=== PATIENT | female | born 1945 | race Caucasian/White ===

== ENCOUNTER → 2018-04-08 | Day surgery (SDC) | payer MEDICARE ==
[2018-04-03 16:08] VITALS: BMI 24.1
[~2018-04-08] MED LIST: PROPOFOL 10 MG/ML 20 ML VIAL IV ONE; SODIUM CHLORIDE 0.9% 1,000 ML IV SCH
[2018-04-08 07:06] VITALS: TEMP 97.7
--- NOTE | 2018-04-08 08:09 | P.PCN ---
Date of Procedure: 04/08/18 Preoperative Diagnosis: Atrial fibrillation, cardiomyopathy Postoperative Diagnosis: The same Procedure(s) Performed: Cardioversion Description of Procedure: This is 72-year-old female was recently admitted with atrial fibrillation and rapid ventricular response. Patient was anticoagulated and rate controlled and advised to have cardioversion. Patient and family were explained the risks and benefits of the procedure. Patient was brought to the lab in a fasting state. She was prepped and draped in the usual fashion. Patient was given IV anesthesia by department of anesthesia using propofol. Synchronized shocks of 200 followed with 300 J was applied with anterior-posterior paddles. Patient converted to sinus rhythm and sinus bradycardia with frequent APCs. No immediate complications. Plan: Patient will be monitored for the next 3-4 hours. If clinically stable, patient will be discharged home. Patient will continue home medications. Follow-up in the office in one week.
[2018-04-08 08:32] VITALS: RESP 18
[2018-04-08 10:02] VITALS: BP 119/67; PULSE 55
== END | disposition home or self-care (01) ==
LOC: CATHCVL 06:03
PROVIDERS: ATTEND Internal Medicine Cardiovascular Disease
DX: I48.1 Persistent atrial fibrillation (principal); I42.9 Cardiomyopathy, unspecified; I10 Essential (primary) hypertension; E78.5 Hyperlipidemia, unspecified; E07.9 Disorder of thyroid, unspecified; I25.10 Atherosclerotic heart disease of native coronary artery without angina pectoris; E78.00 Pure hypercholesterolemia, unspecified; Z82.49 Family history of ischemic heart disease and other diseases of the circulatory system; Z79.899 Other long term (current) drug therapy; Z79.890 Hormone replacement therapy; Z79.82 Long term (current) use of aspirin; Z85.3 Personal history of malignant neoplasm of breast
CPT/HCPCS: 92960; J2704

== ENCOUNTER 2018-05-06 09:00 | Day surgery (SDC) | payer MEDICARE ==
[2018-05-02 09:13] VITALS: BMI 24.3
[2018-05-06 08:39] VITALS: RESP 16; TEMP 98
[~2018-05-06 09:00] MED LIST changes: +ALPRAZolam 0.25 MG TAB PO PRN; +ALPRAZolam 0.5 MG TAB PO PRN; +ASPIRIN 325 MG TAB PO STA; +ASPIRIN 81 MG ONE; +ATORVASTATIN 80 MG TAB PO STA; -LIDOCAINE 1% INJ 10MG/ML (20 ML MDV) ONE; +NITROGLYCERIN SL TABS 0.4 MG TAB SUBLINGUAL PRN; +SODIUM CHLORIDE 0.9% 1,000 ML in EMPTY BAG 1 BAG IV ONE; -fentaNYL (PF) 50 MCG/ML 2 ML AMP ONE
[2018-05-06] MEDS ORDERED: fentaNYL (PF) 50 MCG/ML 2 ML AMP IV ONE (09:09)
[2018-05-06] MEDS ORDERED: MIDAZOLAM 2 MG/2 ML VIAL IVP ONE (09:09)
[2018-05-06] MEDS ORDERED: LIDOCAINE 1% INJ 10MG/ML (20 ML MDV) SQ ONE (09:13)
[2018-05-06] MEDS ORDERED: IOPAMIDOL-370 50ML BTL INJ ONE (09:27)
[2018-05-06] MEDS ORDERED: RX INFO: IV CONTRAST WAS GIVEN 1 EACH MISC MISCELLANE PRN (09:36)
[2018-05-06] MEDS ORDERED: IOPAMIDOL-370 125ML BTL INJ ONE (09:41)
[2018-05-06] MEDS ORDERED: SODIUM CHLORIDE 0.9% 1,000 ML IV SCH (09:45)
[2018-05-06 15:00] VITALS: BP 136/76; PULSE 65
--- NOTE | 2018-05-21 12:14 | P.CARDCATH ---
Date of Procedure: 05/06/18 Preoperative Diagnosis: Positive stress test, cardiomyopathy, atrial fibrillation Postoperative Diagnosis: Minimal coronary artery disease Description of Procedure: HISTORY: This is a 72-year-old female with history of hypertension, was recently admitted to the hospital with atrial fibrillation and evidence of mild cardiomyopathy. Stress test was suggestive of ischemic changes involving the inferolateral segments. Patient is advised to have a cardiac catheterization for definitive diagnosis. CONSENT:I have discussed the risks, benefits and alternative therapies for the above-mentioned procedure and for both sedation/analgesia as well as necessary blood product administration, if indicated, as they pertain to this patient. The patient has indicated understanding and acceptance of the risks and procedures discussed. PROCEDURE: Patient was brought to the lab in a fasting state. Patient was given some IV sedation. The right groin is infiltrated with lidocaine and right femoral artery was entered using Seldinger technique. A 6-Ugandan catheter was left in place and selective coronary arteriography and left ventriculography was performed. Patient tolerated the procedure well. Femoral angiogram was performed and Angio-Seal was applied for hemostasis. No immediate complications were noted and patient was transferred to [facility] in a stable condition Conscious Sedation: Versed 1 mg Fentanyl 25 g Duration 16 minutes HEMODYNAMICS:. The aortic pressure is about 140/70. Left ventricular end- diastolic pressure is about 15. No gradient across the aortic valve SELECTIVE CORONARY ARTERIOGRAPHY: LEFT MAIN: Short and free of occlusive disease THE LEFT ANTERIOR DESCENDING CORONARY ARTERY:. This is a good caliber vessel giving rise good-sized diagonal branch. The LAD and its branches are free of occlusive disease THE LEFT CIRCUMFLEX AND IS CORONARY ARTERY:. This is a good caliber vessel giving rise to good-sized OM branch. There is minimal disease in the proximal portion THE RIGHT CORONARY ARTERY:. This is a good caliber vessel giving rise to good-sized PDA and PLV and dominant vessel. There is mild disease in the mid and distal portion LEFT VENTRICULOGRAPHY:. This revealed mildly dilated left ventricle with generalized hypokinesia with an ejection fraction about 40% FINAL IMPRESSION:. Minimal coronary artery disease. Nonischemic cardiomyopathy PLAN: Maximum medical therapy. PROGNOSIS: fair
== END 2018-05-06 14:40 | disposition home or self-care (01) ==
LOC: CATHEP 09:00 → EDSTATUS 09:00 → CATHEP 14:40
PROVIDERS: ATTEND Internal Medicine Cardiovascular Disease
DX: I25.10 Atherosclerotic heart disease of native coronary artery without angina pectoris (principal); R94.39 Abnormal result of other cardiovascular function study; I42.0 Dilated cardiomyopathy; I48.1 Persistent atrial fibrillation; E78.00 Pure hypercholesterolemia, unspecified; I10 Essential (primary) hypertension; E78.5 Hyperlipidemia, unspecified; Z79.01 Long term (current) use of anticoagulants; Z79.82 Long term (current) use of aspirin; Z79.890 Hormone replacement therapy; Z79.899 Other long term (current) drug therapy; Z82.49 Family history of ischemic heart disease and other diseases of the circulatory system
CPT/HCPCS: 93458; C1760; C1894; C1769; J2250; J2001; J3010; Q9967 ×2

== ENCOUNTER → 2018-05-06 | Day surgery (SDC) ==
[~2018-05-06] MED LIST changes: +LIDOCAINE 1% INJ 10MG/ML (20 ML MDV) ONE; -PROPOFOL 10 MG/ML 20 ML VIAL IV ONE; -SODIUM CHLORIDE 0.9% 1,000 ML IV SCH; +fentaNYL (PF) 50 MCG/ML 2 ML AMP ONE
== END ==
LOC: EDBD → MERGE 07:56 → CATHCVL 07:56
PROVIDERS: ATTEND Internal Medicine Cardiovascular Disease
DX: Z53.9 Procedure and treatment not carried out, unspecified reason (principal)

== ENCOUNTER 2018-06-03 06:51 | Day surgery (SDC) | payer MEDICARE ==
[2018-05-29 11:43] VITALS: BMI 23.8
[~2018-06-03 06:51] MED LIST changes: -ALPRAZolam 0.25 MG TAB PO PRN; -ALPRAZolam 0.5 MG TAB PO PRN; -ASPIRIN 325 MG TAB PO STA; -ASPIRIN 81 MG ONE; -ATORVASTATIN 80 MG TAB PO STA; -NITROGLYCERIN SL TABS 0.4 MG TAB SUBLINGUAL PRN; +SODIUM CHLORIDE 0.9% 1,000 ML IV SCH; -SODIUM CHLORIDE 0.9% 1,000 ML in EMPTY BAG 1 BAG IV ONE
[2018-06-03] MEDS ORDERED: SODIUM CHLORIDE 0.9% 500 ML 500 ML IV ONE (07:23)
[2018-06-03 07:29] VITALS: RESP 16; TEMP 97.6
[2018-06-03 07:52] LABS: Calcium 9.9 mg/dL (8.4-10.2)
[2018-06-03] MEDS ORDERED: LIDOCAINE 1% INJ 10MG/ML (20 ML MDV) ONE (08:19)
[2018-06-03] MEDS ORDERED: PROPOFOL 10 MG/ML 20 ML VIAL IV ONE (08:19)
[2018-06-03 08:21] LABS: Potassium 4.8 mmol/L (3.5-5.1)
[2018-06-03] MEDS ORDERED: SODIUM CHLORIDE 0.9% 1,000 ML IV SCH (08:30)
--- NOTE | 2018-06-03 08:32 | P.PCN ---
Date of Procedure: 06/03/18 Preoperative Diagnosis: Atrial fibrillation Postoperative Diagnosis: Conversion to sinus rhythm Procedure(s) Performed: Cardioversion Description of Procedure: This 72-year-old female with history of cardioversion, cardiomyopathy, had a cardioversion in the past but did not maintain sinus rhythm. She was treated with amiodarone and brought back for repeat cardioversion. Patient was given IV sedation by department of anesthesia. A single shock of 200 J was applied with anterior posterior paddles. Patient converted to sinus rhythm. No immediate complications. Final impression: Successful cardioversion. No complications. Plan: Patient will be discharged home later today. She'll continue current medical therapy except cutting back amiodarone to 200 mg by mouth twice a day. I may cut back the dose to once daily in a week or so.
[2018-06-03 10:23] VITALS: BP 134/79; PULSE 58
== END 2018-06-03 10:23 | disposition home or self-care (01) ==
LOC: CATHCVL 06:51
PROVIDERS: ATTEND Internal Medicine Cardiovascular Disease
DX: I48.1 Persistent atrial fibrillation (principal); I42.0 Dilated cardiomyopathy; I25.10 Atherosclerotic heart disease of native coronary artery without angina pectoris; I10 Essential (primary) hypertension; E78.00 Pure hypercholesterolemia, unspecified; Z82.49 Family history of ischemic heart disease and other diseases of the circulatory system; Z79.01 Long term (current) use of anticoagulants; Z79.82 Long term (current) use of aspirin; Z79.890 Hormone replacement therapy; Z79.899 Other long term (current) drug therapy
CPT/HCPCS: 92960; 80048; J2001; J2704

== ENCOUNTER → 2018-08-28 | Outpatient (CLI) | payer MEDICARE ==
[2018-08-28 10:58] LABS: Potassium 4.5 mmol/L (3.5-5.1)
[2018-08-28 10:59] LABS: HCT 43.4 % (34.0-46.0); MCH 30.4 pg (25.0-35.0); MCHC 32.3 g/dL (31.0-37.0); MCV 94.1 fL (80.0-100.0); Mean Platelet Volume 6.9; Platelet Count 231 k/uL (150-450); RBC 4.61 m/uL (3.80-5.40); RDW 13.1 % (11.5-15.5)
== END | disposition home or self-care (01) ==
LOC: LABPAT 09:26
PROVIDERS: ATTEND Internal Medicine Clinical Cardiac Electrophysiology
DX: Z01.812 Encounter for preprocedural laboratory examination (principal); I48.1 Persistent atrial fibrillation; I42.0 Dilated cardiomyopathy
CPT/HCPCS: 36415; 80051; 82565; 82947; 84520; 85027

== ENCOUNTER 2018-09-02 11:03 | Day surgery (SDC) | payer MEDICARE ==
[2018-08-28 15:59] VITALS: BMI 24.3
[2018-09-02] MEDS ORDERED: HYDROmorphone 0.5 MG/0.5 ML SYRINGE IVP PRN (11:54)
[2018-09-02] MEDS ORDERED: MIDAZOLAM (PF) 2 MG/2 ML VIAL IV PRN (11:54)
[2018-09-02] MEDS ORDERED: SODIUM CHLORIDE 0.9% 1,000 ML IV SCH (11:54)
[2018-09-02] MEDS ORDERED: LACTATED RINGERS 1,000 ML IV SCH (11:54)
[2018-09-02] MEDS ORDERED: PROPOFOL 10 MG/ML 20 ML VIAL IV ONE (12:55)
[2018-09-02] MEDS ORDERED: MIDAZOLAM 2 MG/2 ML VIAL ONE (12:55)
[2018-09-02] MEDS ORDERED: ePHEDrine SULFATE/0.9% NACL/PF 50 MG/5 ML SYRINGE IV ONE (12:55)
[2018-09-02] MEDS ORDERED: SUCCINYLCHOLINE CHLORIDE 100 MG/5 ML SYR IV ONE (12:55)
[2018-09-02] MEDS ORDERED: PROTAMINE SULFATE 10 MG/ML 5 ML VIAL IV ONE (12:55)
[2018-09-02] MEDS ORDERED: NEOSTIGMINE 1 MG/ML 10 ML VIAL ONE (12:55)
[2018-09-02] MEDS ORDERED: GLYCOPYRROLATE 0.2 MG/ML 2 ML VIAL ONE (12:55)
[2018-09-02] MEDS ORDERED: fentaNYL (PF) 50 MCG/ML 2 ML AMP ONE (12:55)
[2018-09-02] MEDS ORDERED: ROCURONIUM BROMIDE 10 MG/ML 10 ML VIAL IV ONE (12:55)
[2018-09-02] MEDS ORDERED: PHENYLEPHRINE-0.9% NACL SYG 1 MG/10 ML SYRINGE ONE (12:55)
[2018-09-02] MEDS ORDERED: HEPARIN SODIUM,PORCINE 10,000 UNIT/ML 1 ML VIAL ONE (12:55)
[2018-09-02] MEDS ORDERED: SODIUM CHLORIDE 0.9% 1,000 ML IV ONE (13:37)
[2018-09-02] MEDS ORDERED: HEPARIN SOD,PORK IN 0.45% NACL 25,000 UNIT in 0.45% NACL 1 250ML.BAG IV ONE (14:39)
[2018-09-02] MEDS ORDERED: LIDOCAINE 1% INJ 10MG/ML (20 ML MDV) SQ ONE (14:39)
[2018-09-02] MEDS ORDERED: LIDOCAINE 1% INJ 10MG/ML (20 ML MDV) ONE (14:43)
[2018-09-02] MEDS ORDERED: IOPAMIDOL-370 100ML BTL INJ ONE (16:34)
[2018-09-02] MEDS ORDERED: HYDROcodone/APAP 5-325MG 1 EACH TAB PO PRN (18:00)
[2018-09-02] MEDS ORDERED: ACETAMINOPHEN TAB 325 MG TAB PO PRN (18:00)
[2018-09-02] MEDS ORDERED: HEPARIN SODIUM (1,000 UNIT/ML) 1,000 UNIT in SODIUM CHLORIDE 0.9% 1,000 ML IRRIGATION ONE (18:04)
[2018-09-02] MEDS ORDERED: LACTATED RINGERS 1,000 ML IV ONE (18:05)
[2018-09-02] MEDS ORDERED: ACETAMINOPHEN IV (For NPO) 1,000 MG in EMPTY BAG 1 BAG IVPB ONE (19:15)
[2018-09-02] MEDS ORDERED: ONDANSETRON 4 MG/2 ML VIAL IVP ONE (19:29)
[2018-09-02] MEDS: LISINOPRIL 5 MG TAB PO SCH (22:49)
[2018-09-02] MEDS: COLCHICINE 0.6 MG EACH PO SCH (22:49)
[2018-09-02] MEDS: APIXABAN 5 MG TAB PO SCH (22:49)
[2018-09-02] MEDS: FLECAINIDE 50 MG TAB PO SCH (22:49)
[2018-09-02] MEDS: METOPROLOL TARTRATE 25 MG TAB PO SCH (22:49)
[2018-09-03] MEDS ORDERED: LEVOTHYROXINE 50 MCG TAB PO SCH (06:30)
[2018-09-03] MEDS ORDERED: FUROSEMIDE 40 MG TAB PO STA (07:20)
--- NOTE | 2018-09-03 07:20 | P.DS ---
Providers Attending physician: Cristian Culp Primary care physician: [facility] Course: Patient is doing well. No chest discomfort. Mild soreness in the throat with swallowing but no odynophagia or chest pain while swallowing Fever chills no cough phlegm Vitals are stable blood pressure 109/68 mmHg pulse rate in the 60s afebrile Breath sounds are reduced bilaterally slightly rhonchorous Heart sounds S1 and S2 are normal regular soft systolic murmur over the aortic area Abdomen soft nontender Extremities are warm no edema Impression Persistent atrial fibrillation status post pulmonary vein isolation, cryoablation as well as linear RF ablation in the left atrial roof and septum of the left atrium Mild organization of atrial fibrillation but the patient remained in atrial fibrillation Electrical cardioversion was performed Scar mapping/voltage mapping of the left atrium revealed extensive scar in the left atrium at baseline LV function 50% good myocardial thickening noted on intracardiac echo Plan discharge home today on current medications without any changes continue antegradely should continue flecainide follow-up with Dr. Vela 1 dose of by mouth Lasix today Plan - Discharge Summary Discharge Rx Participant: Yes New Discharge Prescriptions: Continue Simvastatin [Zocor] 40 mg PO DAILY Levothyroxine Sodium [Synthroid] 50 mcg PO DAILY Aspirin [Adult Low Dose Aspirin EC] 81 mg PO DAILY Lisinopril [Zestril] 5 mg PO BID Apixaban [Eliquis] 5 mg PO BID Metoprolol Tartrate [Lopressor] 25 mg PO BID Flecainide [Tambocor] 50 mg PO Q12HR Discharge Medication List Aspirin [Adult Low Dose Aspirin EC] 81 mg PO DAILY 04/03/18 [History] Levothyroxine Sodium [Synthroid] 50 mcg PO DAILY 04/03/18 [History] Simvastatin [Zocor] 40 mg PO DAILY 04/03/18 [History] Lisinopril [Zestril] 5 mg PO BID 05/02/18 [History] Apixaban [Eliquis] 5 mg PO BID 05/29/18 [History] Flecainide [Tambocor] 50 mg PO Q12HR 08/28/18 [History] Metoprolol Tartrate [Lopressor] 25 mg PO BID 08/28/18 [History] Follow up Appointment(s)/Referral(s): Cristian Culp MD [STAFF PHYSICIAN] - 1 Week (Follow-up with Dr. Malave within one week Follow-up with Dr. Amezcua as needed) Activity/Diet/Wound Care/Special Instructions: Post EP study - Ablation instructions 1. Keep access sites dry for 2 days. 2. No heavy lifting or straining for 2 days. 3. Avoid bending the hips repeatedly for 2 days. 4. You may go up and down stairs slowly Call if the following is noted 1. Bleeding, increasing swelling or pain at the access sites. 2. Increasing chest discomfort, especially upon taking a deep breath. 3. Increasing shortness of breath, at rest or with exertion. 4. Undue cough / phlegm 5. Difficulty or pain while swallowing. 6. Pain or change in color in the extremities. 7. Fever, chills, rigors. 8. Increasing headache or neurologic symptoms. 9. Dizziness, fainting, palpitations Continue same home medications including flecainide 50 mg twice daily Follow-up with : Probably within one week No changes in home medications Discharge home by 5 PM if patient is here today stable, sutures were then removed and vitals are stable
[2018-09-03 07:53] VITALS: RESP 18
[2018-09-03] MEDS: FLECAINIDE 50 MG TAB PO SCH (07:54)
[2018-09-03] MEDS: APIXABAN 5 MG TAB PO SCH (07:54)
[2018-09-03] MEDS: METOPROLOL TARTRATE 25 MG TAB PO SCH (07:54)
[2018-09-03] MEDS: LISINOPRIL 5 MG TAB PO SCH (07:54)
[2018-09-03] MEDS: COLCHICINE 0.6 MG EACH PO SCH (07:55)
[2018-09-03] MEDS ORDERED: ATORVASTATIN 20 MG TAB PO SCH (09:00)
[2018-09-03] MEDS ORDERED: ASPIRIN 81 MG PO SCH (09:00)
[2018-09-03 15:45] VITALS: BP 105/68; PULSE 69; TEMP 98.2
--- NOTE | 2018-09-08 16:41 | PCN ---
PROCEDURE NOTE Cara Amaro has symptomatic atrial fibrillation that is rate controlled. She has failed drug therapy and electrical cardioversions. She has cardiomyopathy despite atrial fibrillation with adequate rate control. She is brought in for an EP study and atrial fibrillation ablation. Patient was brought to the EP lab in a fasting state. Written informed consent was obtained prior to the procedure. The patient underwent general anesthesia for the procedure. The right and left groins were prepped and draped as per protocol. Venous sheaths were placed in the right and left femoral veins. Via these diagnostic and ablation catheters were placed in the high right atrium, His bundle area, right ventricle, coronary sinus. Intracardiac echo catheter and mapping ablation catheter were placed as well as a PentaRay catheter was placed. The intracardiac echo revealed reduced LV systolic function, no pericardial effusion, and absence of any intracardiac mass or thrombus. The left and right transseptal catheterization was performed. The fossa ovalis was identified. Transseptal catheterization was performed. Right atrial pressure 8/4/6 mmHg and LA pressure 25/3/30 mmHg systolic and diastolic . Following that, a cryoablation of pulmonary veins was performed and a cryoablation balloon was placed in all veins sequentially cryoablation of the left superior vein was performed with complete isolation, the left inferior vein was performed with complete isolation, the right-sided veins were completely isolated with entrance block. However, despite complete isolation of the pulmonary veins at the lateral antral level with cryoablation, the patient remained in the disorganized atrial fibrillation. Therefore the cryo sheath was removed and it was exchanged for a regular sheath and irrigated RF mapping ablation catheter was placed in the left atrium. Later a PentaRay catheter was placed. Scar mapping/voltage mapping of the left atrium was performed. The veins were completely isolated. However, there was a considerable amount of scar in the body of the left atrium. RF ablation was performed in the roof and the roof line was made and a complete line of block was made with 100% grid. However, the patient remained in disorganized atrial fibrillation. Next a septal line was placed from the roof down to the down to the right inferior vein anteriorly. This resulted in some organization but the patient still remains in atrial fibrillation. Therefore, at this point, an electrical cardioversion was performed and the patient converted to sinus rhythm. In sinus rhythm, intracardiac echo still revealed reduced LV size and systolic function. All catheters were then removed. Heparin was reversed and sheaths were removed and patient transferred to telemetry. This was a long procedure for several hours requiring pulmonary vein isolation followed by later ablation of the roof and the anterior wall of the septum. There was considerable amount of scar in the body of the left atrium. The patient tolerated procedure well without any acute complications. PLAN: Reassessment of LV function in 4-6 weeks as she remains in normal rhythm. Continue lifelong anticoagulation. BERTRAM / SUKUMARN: [id number] /
== END 2018-09-03 17:05 | disposition home or self-care (01) ==
LOC: CATHEP 11:03 → 1SOBS 18:58 → CATHEP 09-03 17:05
PROVIDERS: ATTEND Internal Medicine Clinical Cardiac Electrophysiology
DX: I48.1 Persistent atrial fibrillation (principal); I42.0 Dilated cardiomyopathy; I25.10 Atherosclerotic heart disease of native coronary artery without angina pectoris; I11.0 Hypertensive heart disease with heart failure; I50.9 Heart failure, unspecified; E78.5 Hyperlipidemia, unspecified; E78.00 Pure hypercholesterolemia, unspecified; E07.9 Disorder of thyroid, unspecified; Z79.01 Long term (current) use of anticoagulants; Z79.82 Long term (current) use of aspirin; Z79.890 Hormone replacement therapy; Z79.899 Other long term (current) drug therapy; Z82.49 Family history of ischemic heart disease and other diseases of the circulatory system
CPT/HCPCS: 94760; 85347; 92960; 93662; 93613; 93656; 93657; C1769 ×4; C1894; C1730 ×2; C1731; C1759; C1893; C1733; C1766; C1732; J2250; J2720; J1644 ×3; J2710; J2405; J2001; J3010; J2370; J0330; J2704; J1170; Q9967

== ENCOUNTER → 2018-10-28 | Outpatient (CLI) | payer MEDICARE ==
--- NOTE | 2018-10-29 07:11 | US ---
EXAMINATION TYPE: US thyroid st tissue head/neck DATE OF EXAM: 10/28/2018 COMPARISON: 05/17/2010 CLINICAL HISTORY: E04.1 THYROID NODULE. GLAND SIZE: Right Lobe: 4.0 x 1.8 x 1.4 cm Overall Parenchyma: heterogenous Left Lobe: 2.3 x 1.0 x 0.8 cm Overall Parenchyma: heterogeneous Isthmus Thickness: 0.2 cm NODULES RIGHT: # of nodules measured on right: 1 this was the palpable by DRFoster 1. 0.8 X 0.6 x 0.9 cm solid nodule at the upper/mid pole with well-defined margins; . This nodule is wider than tall and shows intranodular vascularity. Prior size: 0.8 x 0.7 x 0.5 cm LEFT: # of nodules measured on left: 1 1. 0.6 X 0.7 x 0.9 cm solid nodule at the upper pole with well-defined margins; . This nodule is w ider than tall and shows intranodular vascularity. Prior size: no prior ISTHMUS: # of nodules measured in the isthmus: 0 Bilateral neck scanned, no evidence of lymphadenopathy. IMPRESSION: 1. The known palpable right thyroid nodule is overall similar in size to the prior exam of 2010. Ther efore this should be considered benign given its long-term stability. 2. Although a new thyroid nodule is measured on the left diffuse glandular heterogeneity is seen on t he left and therefore the nodule could have been present on the prior and partially obscured. Surveil sherry with repeat thyroid ultrasound is recommended for the subcentimeter nodule in 12 months.
== END | disposition home or self-care (01) ==
LOC: RADUSWWP 15:14
PROVIDERS: ATTEND Otolaryngology
DX: E04.1 Nontoxic single thyroid nodule (principal)
CPT/HCPCS: 76536

== ENCOUNTER 2019-11-06 06:22 | Inpatient (IN) | payer MEDICARE ==
[2019-11-04 15:26] VITALS: BMI 24.3
[2019-11-06] MEDS ORDERED: ALPRAZolam 0.25 MG TAB PO PRN (06:27)
[2019-11-06] MEDS ORDERED: MIDAZOLAM 2 MG/2 ML VIAL IV ONE (06:27)
[2019-11-06] MEDS ORDERED: NITROGLYCERIN SL TABS 0.4 MG TAB SUBLINGUAL PRN (06:27)
[2019-11-06] MEDS ORDERED: SODIUM CHLORIDE 0.9% 1,000 ML in EMPTY BAG 1 BAG IV ONE (06:27)
[2019-11-06] MEDS ORDERED: BENZOCAINE SPRAY 1 CAN TOPICAL PRN (06:27)
[2019-11-06] MEDS ORDERED: fentaNYL (PF) 50 MCG/ML 5 ML AMP IVP ONE (06:27)
[2019-11-06] MEDS ORDERED: ASPIRIN 325 MG TAB PO STA (06:27)
[2019-11-06] MEDS ORDERED: ALPRAZolam 0.5 MG TAB PO PRN (06:27)
[2019-11-06] MEDS ORDERED: fentaNYL (PF) 50 MCG/ML 2 ML AMP ONE (07:07)
[2019-11-06 07:20] LABS: Basophils % (A) 1 %; Eosinophils # (A) 0.2 k/uL (0-0.7); Eosinophils % (A) 4 %; HCT 42.1 % (34.0-46.0); HGB 13.7 gm/dL (11.4-16.0); Lymphocytes # (A) 1.3 k/uL (1.0-4.8); Lymphocytes % (A) 26 %; MCH 29.9 pg (25.0-35.0); MCHC 32.6 g/dL (31.0-37.0); MCV 91.8 fL (80.0-100.0); Mean Platelet Volume 7.3; Monocytes # (A) 0.4 k/uL (0-1.0); Monocytes % (A) 7 %; Neutrophils # (A) 2.9 k/uL (1.3-7.7); Neutrophils % (A) 59 %; Platelet Count 195 k/uL (150-450); RBC 4.58 m/uL (3.80-5.40); RDW 12.5 % (11.5-15.5); WBC 4.8 k/uL (3.8-10.6)
[2019-11-06] MEDS: BENZOCAINE SPRAY 1 CAN MUCOUS MEM ONE ×2 (07:25→07:32)
[2019-11-06] MEDS ORDERED: IV FLUID CONTINUATION 1,000 ML IV ONE ×2 (07:26)
[2019-11-06 07:28] LABS: Calcium 9.7 mg/dL (8.4-10.2); Potassium 4.4 mmol/L (3.5-5.1)
[2019-11-06] MEDS ORDERED: fentaNYL (PF) 50 MCG/ML 2 ML AMP IV ONE (07:36)
[2019-11-06] MEDS: MIDAZOLAM 2 MG/2 ML VIAL IV ONE ×2 (07:36→07:45)
[2019-11-06] MEDS ORDERED: SODIUM CHLORIDE 0.9% 1,000 ML IV SCH ×2 (08:00→09:00)
--- NOTE | 2019-11-06 08:07 | P.TEE ---
Indications for Procedure(s): Assessment the mitral and aortic regurgitation Date of Procedure: 11/06/19 Preoperative Diagnosis: Severe mitral and moderate to severe aortic regurgitation Postoperative Diagnosis: the same Procedure(s) Performed: [facility] Description of Procedure(s): INDICATION: Assessment of valvular heart disease CONSENT: Informed verbal consent was obtained from the patient PROCEDURE: Patient was brought to the lab in a fasting state. Prepped and draped in the usual fashion. Patient was given IV sedation with the milligram of Versed and 25 g of fentanyl. The throat was sprayed with Hurricaine. A lubricated Omni probe was introduced into the oropharynx and was advanced into the esophagus. Multiple views were obtained. Color, pulsed and continuous Doppler studies were performed. Saline contrast bubble injection was also performed. Patient tolerated the procedure well FINDINGS:. The aortic valve is tricuspid. There is moderate to severe aortic regurgitation. The aortic valve excursion is normal. The mitral valve appeared within normal. There is central mitral regurgitation which seemed to moderate to severe. The PISA value is 1.8. No reversible of flow noted in the left pulmonary vein. Left atrial appendage is free of any clot. The interatrial septum did not show any spontaneous. Injection of saline contrast bubble did not show any shunt. The left ventricle appeared to be dilated with generalized hypokinesia with an ejection fraction about 35-40%. Aortic pressure moderate plaque IMPRESSION: #1. Moderate to severe aortic regurgitation #2. Moderate to severe mitral regurgitation, probably in the range of 3 to 4 plus. #3. Dilated left ventricle with generalized hypokinesia and ejection fraction about 35-40%. #4. No clot in the left atrial appendage. #5. No PFO #6. Mild to moderate plaque in the aorta PLAN: Proceed with cardiac catheterization and possible valve replacement or repair
[2019-11-06] MEDS ORDERED: LIDOCAINE 1% INJ 10MG/ML (20 ML MDV) SQ ONE (08:16)
[2019-11-06 08:44] LABS: O2 Sat Blood Gas 71.1 %
[2019-11-06 08:47] LABS: O2 Sat Blood Gas 71.5 %
[2019-11-06] MEDS ORDERED: IOPAMIDOL-370 100ML BTL INJ ONE ×2 (08:47)
[2019-11-06 08:49] LABS: O2 Sat Blood Gas 95.8 %
[2019-11-06] MEDS ORDERED: RX INFO: IV CONTRAST WAS GIVEN 1 EACH MISC MISCELLANE PRN (08:54)
[2019-11-06 14:11] LABS: Partial Thromboplastin Time 23.1 sec (22.0-30.0); Prothrombin Time 10.2 sec (9.0-12.0)
[2019-11-06 14:14] LABS: Albumin 4.2 g/dL (3.5-5.0); Calcium 9.2 mg/dL (8.4-10.2); Magnesium 2.1 mg/dL (1.6-2.3); Potassium 4.4 mmol/L (3.5-5.1); Total Bilirubin 0.8 mg/dL (0.2-1.3); Total Protein 6.6 g/dL (6.3-8.2)
--- NOTE | 2019-11-06 14:26 | CT ---
EXAMINATION TYPE: CODE STROKE: CT brain wo contr DATE OF EXAM: 11/06/2019 COMPARISON: none HISTORY: Lt sided weakness post heart cath and HERMES CT DLP: 945.[address] of the brain was performed. The ventricles, basal cisterns and sulci overlying the cerebral convexities demonstrate mild enlargem ent. There is no evidence for intracranial hemorrhage or sulcal effacement. There is decreased attenuation about the periventricular white matter and deep white matter of both c erebral hemispheres, compatible with chronic small vessel ischemia. Differential diagnosis does inclu de demyelination. No mass effects are seen.No midline shift. Osseous calvarium is intact. If symptoms persist consider MRI. IMPRESSION: 1. Age related atrophic and chronic small vessel ischemic change without acute intracranial process s een at this time.
[2019-11-06 14:32] LABS: Appearance,Urine Clear (Clear); Bilirubin,Urine Negative (Negative); Blood,Urine Negative (Negative); Color,Urine Light Yellow; Glucose,Urine (UA) Negative (Negative); Ketones,Urine Negative (Negative); Leukocyte Esterase,Urine Negative (Negative); Nitrite,Urine Negative (Negative); PH, Urine 7.5 (5.0-8.0); Protein,Urine Negative (Negative); Specific Gravity,Urine 1.039 (1.001-1.035); Urobilinogen,Urine <2.0 mg/dL (<2.0)
[2019-11-06] MEDS ORDERED: Alteplase PER PHARMACY Stroke 1 EACH MISC MISCELLANE PRN (14:36)
[2019-11-06] MEDS ORDERED: ALTEPLASE 59 MG in EMPTY BAG 1 BAG IV STA ×2 (14:39→14:40)
[2019-11-06] MEDS ORDERED: ALTEPLASE BOLUS 7 MG in EMPTY SYRINGE 1 SYR IV STA (14:40)
[2019-11-06] MEDS ORDERED: SODIUM CHLORIDE 0.9% 50 ML MINI-BAG IV ONE (15:36)
[2019-11-06 15:40] VITALS: TEMP 97.9
[2019-11-06 16:53] VITALS: BP 144/72; PULSE 66; RESP 17
--- NOTE | 2019-11-06 16:54 | P.GSCN ---
History of Present Illness Consult date: 11/06/19 Reason for Consult: Severe mitral valve regurgitation and severe aortic valve regurgitation, evaluation for surgery. Requesting physician: Antonieta Malave History of present illness: This is a 74-year-old female patient who is followed by Dr. Mary Montero on an outpatient basis. She has a past medical history significant for hypertension, hyperlipidemia, deep vein thrombosis 3 to her right lower extremity, persistent atrial fibrillation status post ablation 1 year ago, previous cardioversions, hypothyroid, cardiomyopathy with a known ejection fraction of 40%, breast cancer status post lumpectomy, 6 treatments of chemotherapy and 35 treatments of radiation, uterine cancer status post hysterectomy and questionable CVA according to the patient and her son. She follows with Dr. Ventura from neurology for her previous CVA. Since 2018, the patient reports that she has been having some episodes of dizziness which has progressively been getting worse over the last 2 years. The dizziness is also associated with fatigue and she feels tired with activity. She denies any complaints of chest pain, shortne ss of breath, nausea, vomiting, presyncope, syncope or orthopnea. Due to her complaints of dizziness, fatigue and feeling tired she underwent a 2-D echocardiogram which demonstrated the left ventricle to be normal in size with moderately decreased systolic function with an ejection fraction of 40%, severe mitral valve regurgitation, severe aortic valve regurgitation, moderate tricuspid valve regurgitation and physiologic pulmonic valve regurgitation. Due to the findings on her 2-D echocardiogram she was recommended to undergo a transesophageal echocardiogram and a cardiac catheterization. Today 11/06/2019 after obtaining consent underwent a transesophageal echocardiogram performed by Dr. Malave which showed the left ventricle to be dilated with generalized hypokinesia with an ejection fraction about 35-40%, moderate to severe aortic valve regurgitation, and moderate to severe mitral valve regurgitation. The patient also underwent a cardiac catheterization which demonstrated normal coronary arteries and moderate to severe mitral valve regurgitation. Subsequently, a consult was placed to Dr. Luis Daniel Hernandez from cardiothoracic surgery for further evaluation and treatment recommendations regarding the severe mitral valve regurgitation and aortic valve regurgitation. Review of Systems A 14 point review of systems was completed was negative except as mentioned in the HPI. Past Medical History Past Medical History: Atrial Fibrillation, Cancer (History of breast cancer status post lumpectomy, 6 treatments of chemotherapy and 35 treatments of radiation in 1997. Also history of uterine cancer status post hysterectomy.), CVA/TIA (Reports she was told by her neurologist Dr. Ventura that she has had a previous stroke.), Deep Vein Thrombosis (DVT), Hyperlipidemia, Hypertension, Thyroid Disorder Additional Past Medical History / Comment(s): See Dr Malave's H&P,bowel obstruction. breast cancer 1997-(chemo and radiation) History of Any Multi-Drug Resistant Organisms: None Reported Past Surgical History: Appendectomy, Bowel Resection, Cardiac Ablation, Hysterectomy, Tubal Ligation Additional Past Surgical History / Comment(s): CARDIOVERSION times 2/ABLATION for afib., bowel resection with colostomy/later reversal, left breast lumpectomy. Past Anesthesia/Blood Transfusion Reactions: No Reported Reaction Past Psychological History: No Psychological Hx Reported Smoking Status: Never smoker Past Alcohol Use History: None Reported Past Drug Use History: None Reported - Past Family History Father Family Medical History: Vascular Disorder Additional Family Medical History / Comment(s): Patient's father from a AAA rupture. Brother(s) Family Medical History: Deep Vein Thrombosis (DVT) Mother Family Medical History: Coronary Artery Disease (CAD), Diabetes Mellitus Medications and Allergies Home Medications Medication Instructions Recorded Confirmed Type Aspirin [Adult Low Dose Aspirin EC] 81 mg PO DAILY 04/03/18 11/06/19 History Levothyroxine Sodium [Synthroid] 50 mcg PO DAILY 04/03/18 11/06/19 History Simvastatin [Zocor] 40 mg PO DAILY 04/03/18 11/06/19 History Lisinopril [Zestril] 10 mg PO DAILY 05/02/18 11/06/19 History Ubidecarenone [Co Q-10] 100 mg PO DAILY 10/20/18 11/06/19 History Furosemide [Lasix] 20 mg PO DAILY 11/04/19 11/06/19 History Metoprolol Tartrate [Lopressor] 25 mg PO BID 11/04/19 11/06/19 History Spironolactone [Aldactone] 12.5 mg PO DAILY 11/04/19 11/06/19 History Apixaban [Eliquis] 5 mg PO BID 11/06/19 11/06/19 History Allergies Allergy/AdvReac Type Severity Reaction Status Date / Time No Known Allergies Allergy Verified 07/17/20 06:48 Surgical - Exam Vital Signs Temp Pulse Resp BP Pulse Ox 98.1 F 54 L 18 148/75 97 11/06/19 07:09 11/06/19 07:09 11/06/19 07:09 11/06/19 07:09 11/06/19 07:09 Patient is seen examined at her bedside in the extended stay unit. She is awake, alert and oriented 3 and in no acute distress. - General well developed, well nourished, no distress, no pain - Eyes PERRL, normal ocular movement - ENT normal pinna, normal nares, normal mucosa, no hearing loss, no congestion - Neck Neck is supple, no lymphadenopathy. No carotid bruit. no masses, no bruits, trachea midline, no venous distension - Respiratory Lung sounds are essentially clear throughout, diminished bilateral bases. Respirations are symmetrical and nonlabored. No wheezes, rhonchi or crackles. - Cardiovascular Regular rhythm and rate. S1 and S2 present, negative for S3, or gallop. Faint systolic murmur heard best to her left sternal border. +1 edema to her bilateral lower extremities. - Abdomen Abdomen is soft, nontender and nondistended. Active bowel sounds present in all 4 abdominal quadrants. No guarding or rigidity. No organomegaly appreciated. - Genitourinary Deferred - Rectum Deferred - Integumentary no rash, no growths, no abnormal pigmentation - Neurologic normal coordination, normal sensation - Musculoskeletal Bedrest at this time moves all 4 extremities appropriately. - Psychiatric oriented to time, oriented to person, oriented to place, speech is normal, memory intact Results - Labs 11/06/19 06:55 11/06/19 13:22 Abnormal Lab Results - Last 24 Hours (Table) 11/06/19 Range/Units 06:55 Carbon Dioxide 31 H (22-30) mmol/L BUN 28 H (7-17) mg/dL Diabetes panel 11/06/19 Range/Units 06:55 Sodium 138 (137-145) mmol/L Potassium 4.4 (3.5-5.1) mmol/L Chloride 101 (98-107) mmol/L Carbon Dioxide 31 H (22-30) mmol/L BUN 28 H (7-17) mg/dL Creatinine 0.86 (0.52-1.04) mg/dL Glucose 95 (74-99) mg/dL Calcium 9.7 (8.4-10.2) mg/dL Calcium panel 11/06/19 Range/Units 06:55 Calcium 9.7 (8.4-10.2) mg/dL Pituitary panel 11/06/19 Range/Units 06:55 Sodium 138 (137-145) mmol/L Potassium 4.4 (3.5-5.1) mmol/L Chloride 101 (98-107) mmol/L Carbon Dioxide 31 H (22-30) mmol/L BUN 28 H (7-17) mg/dL Creatinine 0.86 (0.52-1.04) mg/dL Glucose 95 (74-99) mg/dL Calcium 9.7 (8.4-10.2) mg/dL Adrenal panel 11/06/19 Range/Units 06:55 Sodium 138 (137-145) mmol/L Potassium 4.4 (3.5-5.1) mmol/L Chloride 101 (98-107) mmol/L Carbon Dioxide 31 H (22-30) mmol/L BUN 28 H (7-17) mg/dL Creatinine 0.86 (0.52-1.04) mg/dL Glucose 95 (74-99) mg/dL Calcium 9.7 (8.4-10.2) mg/dL - Imaging Additional studies: Cardiac catheterization films and transesophageal echocardiogram films reviewed by Dr. Luis Daniel Hernandez. Assessment and Plan Assessment: 1. Moderate to severe aortic valve regurgitation 2. Moderate to severe mitral valve regurgitation 3. Dilated left ventricle with generalized hypokinesia and an ejection fraction about 35-40% 4. History of hypertension 5. History of dyslipidemia 6. History of deep vein thrombosis 3 to her right lower extremity 7. History of atrial fibrillation status post ablation and cardioversion 2 8. Hypothyroid 9. History of dizziness 10. History of possible CVA 11. History of breast cancer status post lumpectomy, 6 treatments of chemotherapy and 35 treatments of radiation 12. History of uterine cancer status post hysterectomy 13. History of perforated bowel from diverticulitis, status post colectomy and colostomy/reversal of colostomy Plan: The patient was seen and examined at her bedside in the extended stay unit. Her chart and diagnostics were reviewed. She was seen and examined by Dr. Luis Daniel Hernandez. Dr. Hernandez spoke at length with the patient and her son present at her bedside regarding the results of her transesophageal echocardiogram and cardiac catheterization films. Preoperative testing and preoperative teaching has been initiated. Cardiac rehab attempted a 5 m walk test with the patient, as the patient got up she needed to use the restroom and her son was assisting her with nursing staff. The patient reported that she was having some left sided weakness and heaviness and a code stroke was called. According to the extended stay care nurse TPA is infusing per neurology recommendations. A computed tomography scan of her brain was completed which demonstrated age-related atrophic and chronic small vessel ischemic change without acute intracranial process seen per the report. Once the patient has recovered from this episode and preoperative workup has been completed she can follow up with Dr. Hernandez in the office on 11/20/2019 for further discussions regarding aortic, mitral and possible tricuspid valve surgery. Continue to optimize medical management with beta alycia, aspirin, Aldactone, statin, SUKHDEV inhibitor, and Lasix. Cardiology management recommendations per Dr. Malave and medical management recommendations and other comorbidities per primary care service. More recommendations to follow based on patient's clinical course, and preoperative testing results. Thank you Dr. Malave for this consult and we will look forward to working with you in the care of this patient. Time with Patient: Greater than 30
--- NOTE | 2019-11-06 16:59 | P.CARDCATH ---
Date of Procedure: 11/06/19 Preoperative Diagnosis: Aortic and mitral regurgitation, cardiomyopathy and persistent atrial fibrillation Postoperative Diagnosis: Moderate to severe mitral regurgitation , moderate aortic regurgitation Procedure(s) Performed: Right and left heart catheterization with left ventriculography and aortic root injection Description of Procedure: HISTORY: This is a 74-year-old female with history of atrial fibrillation Cardec myopathy, moderate to severe mitral and aortic regurgitation. Patient is advised to have a right and left heart catheterization for further evaluation CONSENT:I have discussed the risks, benefits and alternative therapies for the above-mentioned procedure and for both sedation/analgesia as well as necessary blood product administration, if indicated, as they pertain to this patient. The patient has indicated understanding and acceptance of the risks and procedures discussed. PROCEDURE: Patient was brought to the lab in a fasting state. Patient was given some IV sedation. Right heart catheterization: The right groin is infiltrated with lidocaine. Right femoral vein was entered using Seldinger technique and a 6-Kittitian cath was left in place. A [place]-Salazar catheter was advanced under fluoroscopyp into the right atrium, right ventricle and pulmonary artery. Cardiac output was obtained with thermodilution method. Hemodynamics were obtained. Manual compression was applied for hemostasis at the end of the procedure The right groin is infiltrated with lidocaine and right femoral artery was entered using Seldinger technique. A 6-Kittitian catheter was left in place and selective coronary arteriography and left ventriculography was performed. Aortic root injection was also performed Patient tolerated the procedure well. Femoral angiogram was performed and Angio-Seal was applied for hemostasis. No immediate complications were noted and patient was transferred to [facility] in a stable condition Conscious Sedation: Versed 2mg Fentanyl 25 g Duration 29minutes HEMODYNAMICS:. The right atrial pressure was 3 to 5. Right ventricular pressure was about 40/5. Pulmonary artery pressure is 40/15. The pulmonary wedge pressure is about 18-20. There left ventricle pressure was about 110/80. There was no gradient across the aortic valve. Left ventricle end-diastolic pressure is about 8 SELECTIVE CORONARY ARTERIOGRAPHY: LEFT MAIN: Normal length and free of occlusive disease THE LEFT ANTERIOR DESCENDING CORONARY ARTERY:. Moderate-caliber vessel and free of occlusive disease THE LEFT CIRCUMFLEX AND IS CORONARY ARTERY:. Moderate-caliber vessel free of occlusive disease THE RIGHT CORONARY ARTERY:. Moderate-caliber vessel free of occlusive disease LEFT VENTRICULOGRAPHY:. This revealed mildly dilated left ventricle with generalized hypokinesia with an ejection fraction about 40%. There is 3-4+ mitral regurgitation. Aortic root injection: This is were performed in the left anterior oblique projection. This revealed about 2 to 3+ aortic regurgitation FINAL IMPRESSION: #1. Almost severe mitral regurgitation #2. Moderate aortic regurgitation #3. [id number] pulmonary hypertension #4. Left ventricle dysfunction with an ejection fraction of 45-50%. #5. Persistent atrial fibrillation PLAN:. Continued medical therapy. Surgical intervention with mitral valve repair and aortic valve replacement. Possible maze procedure PROGNOSIS: gaurded
--- NOTE | 2019-11-06 17:02 | P.PN ---
Progress Note - Text Progress Note Date: 11/06/19 This patient had left and right heart catheterization and HERMES, this morning. Patient remains stable for several hours. Patient apparently was complaining of some numb feeling in the left arm. They tried to take her to the bathroom and patient had some weakness in the left leg. Stroke code was initiated. The patient had a computed tomography scan which was negative. Patient was evaluated by neurosurgeon robotically and suggested that patient received thrombolytic therapy. Patient received from medics. At the time of this at my examination at around 4:30, patient is fully alert and oriented. The left arm seemed to be moving well with good strength. Patient is able to move the left leg agonist a gravity. According to son. There is significant improvement in her neurological status. At this point patient is being transferred to neurosurgery Department at [facility] for close observation. Patient denies any chest pain or shortness of breath. Hemodynamically stable. Patient patient was seen by cardiothoracic surgeon and there is a plan for possible surgery with mitral valve repair in bipolar replacement. Patient will be followed as an outpatient upon returning from [facility]. Final impression: #1. Status post cardiac cath with evidence of severe mitral regurgitation and moderate to severe aortic regurgitation #2. Dilated cardiomyopathy. #3. Atrial fibrillation which is persistent #4. Possible TIA versus CVA. Status post thrombotic therapy.
[2019-11-06 22:50] LABS: Hepatitis A Antibody IgM Non-Reactive (Non-Reactive); Hepatitis B Core IgM Non-Reactive (Non-Reactive); Hepatitis B Surface Antigen Non-Reactive (Non-Reactive); Hepatitis C IgG Antibody Non-Reactive (Non-Reactive)
[2019-11-07 01:33] LABS: Hemoglobin A1C 5.6 % (4.0-6.0)
== END 2019-11-06 17:50 | disposition short-term general hospital (02) | DRG 286 ==
LOC: CATHCVL 06:22 → 2CATHESU 15:51
PROVIDERS: ADMIT Internal Medicine Cardiovascular Disease; ATTEND Internal Medicine Cardiovascular Disease
PROC: B2151ZZ Fluoroscopy of Left Heart using Low Osmolar Contrast (ICD-10-PCS; principal; 2019-11-06 07:15)
PROC: B2111ZZ Fluoroscopy of Multiple Coronary Arteries using Low Osmolar Contrast (ICD-10-PCS; principal; 2019-11-06 07:15)
PROC: 4A023N8 Measurement of Cardiac Sampling and Pressure, Bilateral, Percutaneous Approach (ICD-10-PCS; principal; 2019-11-06 07:15)
PROC: 3E03317 Introduction of Other Thrombolytic into Peripheral Vein, Percutaneous Approach (ICD-10-PCS; principal; 2019-11-06 07:15)
PROC: B24BZZ4 Ultrasonography of Heart with Aorta, Transesophageal (ICD-10-PCS; principal; 2019-11-06 07:15)
DX: I34.0 Nonrheumatic mitral (valve) insufficiency (principal); I63.9 Cerebral infarction, unspecified; I42.0 Dilated cardiomyopathy; G45.9 Transient cerebral ischemic attack, unspecified; I48.19 Other persistent atrial fibrillation; I35.1 Nonrheumatic aortic (valve) insufficiency; I36.1 Nonrheumatic tricuspid (valve) insufficiency; I37.1 Nonrheumatic pulmonary valve insufficiency; R29.704 NIHSS score 4; I70.0 Atherosclerosis of aorta; I10 Essential (primary) hypertension; I25.10 Atherosclerotic heart disease of native coronary artery without angina pectoris; E03.9 Hypothyroidism, unspecified; E78.5 Hyperlipidemia, unspecified; E78.00 Pure hypercholesterolemia, unspecified; Z79.01 Long term (current) use of anticoagulants; Z79.82 Long term (current) use of aspirin; Z79.890 Hormone replacement therapy; Z79.899 Other long term (current) drug therapy; Z86.718 Personal history of other venous thrombosis and embolism; Z85.3 Personal history of malignant neoplasm of breast; Z90.12 Acquired absence of left breast and nipple; Z85.42 Personal history of malignant neoplasm of other parts of uterus; Z90.710 Acquired absence of both cervix and uterus; Z92.21 Personal history of antineoplastic chemotherapy; Z92.3 Personal history of irradiation; Z86.73 Personal history of transient ischemic attack (TIA), and cerebral infarction without residual deficits; Z90.49 Acquired absence of other specified parts of digestive tract; Z87.19 Personal history of other diseases of the digestive system; Z98.890 Other specified postprocedural states; Z82.49 Family history of ischemic heart disease and other diseases of the circulatory system; Z83.3 Family history of diabetes mellitus; Z83.2 Family history of diseases of the blood and blood-forming organs and certain disorders involving the immune mechanism
CPT/HCPCS: 70450; 80048; 80053; 80061; 80074; 81003; 82810; 83036; 83735; 84443; 85018; 85025; 85610; 85730; 93312; 93320; 93325; 93453; 93567

== ENCOUNTER 2023-04-25 10:33 | Emergency (ER) | payer MEDICARE ==
--- NOTE | 2023-04-25 11:06 | ED ---
General Adult HPI - General Stated complaint: BACK PAIN Time Seen by Provider: 04/25/23 11:04 Source: patient, RN notes reviewed Mode of arrival: ambulatory Limitations: no limitations - History of Present Illness Initial comments: 77-year-old female sent emergency Department chief complaint of right lower back pain. Patient states she bent forward to make her 's bed when she started having right lower back pain. She states it does radiate down her right leg to her knee but just past her knee. She denies any paresthesias. She denies any difficulty urinating but states that she feels like she may have UTI. - Related Data Home Medications Medication Instructions Recorded Confirmed Aspirin [Adult Low Dose Aspirin EC] 81 mg PO DAILY 04/03/18 11/06/19 Levothyroxine Sodium [Synthroid] 50 mcg PO DAILY 04/03/18 11/06/19 Simvastatin [Zocor] 40 mg PO DAILY 04/03/18 11/06/19 lisinopriL [Zestril] 10 mg PO DAILY 05/02/18 11/06/19 Ubidecarenone [Co Q-10] 100 mg PO DAILY 10/20/18 11/06/19 Furosemide [Lasix] 20 mg PO DAILY 11/04/19 11/06/19 Metoprolol Tartrate [Lopressor] 25 mg PO BID 11/04/19 11/06/19 Spironolactone [Aldactone] 12.5 mg PO DAILY 11/04/19 11/06/19 Apixaban [Eliquis] 5 mg PO BID 11/06/19 11/06/19 Previous Rx's Medication Instructions Recorded methocarbamoL [Robaxin] 500 mg PO TID #15 tab 04/25/23 Allergies Allergy/AdvReac Type Severity Reaction Status Date / Time No Known Allergies Allergy Verified 04/25/23 12:12 Review of Systems ROS Statement: Those systems with pertinent positive or pertinent negative responses have been documented in the HPI. ROS Other: All systems not noted in ROS Statement are negative. Past Medical History Past Medical History: Atrial Fibrillation, Cancer (History of breast cancer st at[facility] post lumpectomy, 6 treatments of chemotherapy and 35 treatments of radiation in 1997. Also history of uterine cancer status post hysterectomy.), CVA/TIA (Reports she was told by her neurologist Dr. Ventura that she has had a previous stroke.), Deep Vein Thrombosis (DVT), Hyperlipidemia, Hypertension, Thyroid Disorder Additional Past Medical History / Comment(s): See Dr Malave's H&P,bowel obstruction. breast cancer 1997-(chemo and radiation) History of Any Multi-Drug Resistant Organisms: None Reported Past Surgical History: Appendectomy, Bowel Resection, Cardiac Ablation, Hysterectomy, Tubal Ligation Additional Past Surgical History / Comment(s): CARDIOVERSION times 2/ABLATION for afib., bowel resection with colostomy/later reversal, left breast lumpectomy. Past Anesthesia/Blood Transfusion Reactions: No Reported Reaction Past Psychological History: No Psychological Hx Reported Smoking Status: Never smoker Past Alcohol Use History: None Reported Past Drug Use History: None Reported - Past Family History Father Family Medical History: Vascular Disorder Additional Family Medical History / Comment(s): Patient's father from a AAA rupture. Brother(s) Family Medical History: Deep Vein Thrombosis (DVT) Mother Family Medical History: Coronary Artery Disease (CAD), Diabetes Mellitus General Exam - General Exam Comments Initial Comments: Visual Physical Exam Vital signs reviewed General: Well-appearing, nontoxic, no acute distress. Head: Normocephalic, atraumatic Eyes: PERRLA, EOMI ENT: Airway patent Chest: Nonlabored breathing Skin: No visual rash, normal skin tone Neuro: Alert and oriented 3 Musculoskeletal: No gross abnormalities Limitations: no limitations General appearance: alert, in no apparent distress Head exam: Present: atraumatic, normocephalic, normal inspection Eye exam: Present: normal appearance, PERRL, EOMI. Absent: scleral icterus, conjunctival injection, periorbital swelling ENT exam: Present: normal exam, mucous membranes moist Neck exam: Present: normal inspection. Absent: tenderness, meningismus, lymphadenopathy Respiratory exam: Present: normal lung sounds bilaterally. Absent: respiratory distress, wheezes, rales, rhonchi, stridor Cardiovascular Exam: Present: regular rate, normal rhythm, normal heart sounds. Absent: systolic murmur, diastolic murmur, rubs, gallop, clicks GI/Abdominal exam: Present: soft, normal bowel sounds. Absent: distended, tenderness, guarding, rebound, rigid Extremities exam: Present: normal inspection, full ROM, normal capillary refill. Absent: tenderness, pedal edema, joint swelling, calf tenderness Back exam: Present: full ROM, tenderness, paraspinal tenderness. Absent: vertebral tenderness Neurological exam: Present: reflexes normal. Absent: motor sensory deficit Course Vital Signs 04/25/23 04/25/23 12:07 13:34 Temperature 97.6 F Pulse Rate 62 63 Respiratory 18 18 Rate Blood Pressure 128/73 121/59 O2 Sat by Pulse 99 100 Oximetry Medical Decision Making - Medical Decision Making I completed the quick note portion of this chart signed Pacheco Frey PA-C Was pt. sent in by a medical professional or institution ([facility], INSURANCE CLAIM APPROVER, urgent care, hospital, or snf...) When possible be specific @ -No Did you speak to anyone other than the patient for history (EMS, parent, family, police, friend...)? What history was obtained from this source @ -No Did you review nursing and triage notes (agree or disagree)? Why? @ -I reviewed and agree with nursing and triage notes Were old charts reviewed (outside hosp., previous admission, EMS record, old EKG, old radiological studies, urgent care reports/EKG's, snf records)? Report findings @ -No old charts were reviewed Differential Diagnosis (chest pain, altered mental status, abdominal pain women, abdominal pain men, vaginal bleeding, weakness, fever, dyspnea, syncope, headache, dizziness, GI bleed, back pain, seizure, CVA, palpatations, mental health, musculoskeletal)? @ -[Differential Back Pain: Strain, zoster, cauda equina syndrome, epidural abscess, vertebral osteomyelitis, discitis, fracture, subluxation, disc herniation, DJD, spinal stenosis, dissection, AAA, pancreatitis, peptic ulcer disease, pyelonephritis, kidney stone, this is not meant to be an all-inclusive list. EKG interpreted by me (3pts min.). @ -[None X-rays interpreted by me (1pt min.). @ -[X-ray lumbar spine showing mild degenerative changes, no acute fracture CT interpreted by me (1pt min.). @ -None done U/S interpreted by me (1pt. min.). @ -None done What testing was considered but not performed or refused? (CT, X-rays, U/S, labs)? Why? @ -None What meds were considered but not given or refused? Why? @ -None Did you discuss the management of the patient with other professionals (professionals i.e. , PA, INSURANCE CLAIM APPROVER, lab, RT, psych nurse, psychiatric social worker, director microbiology, teacher, ground intelligence officer, case mgr)? Give summary @ -No Was smoking cessation discussed for >3mins.? @ -No Was critical care preformed (if so, how long)? @ -No Were there social determinants of health that impacted care today? How? (Homelessness, low income, unemployed, alcoholism, drug addiction, transportation, low edu. Level, literacy, decrease access to med. care, half-way, rehab)? @ -No Was there de-escalation of care discussed even if they declined (Discuss DNR or withdrawal of care, Hospice)? DNR status @ -No What co-morbidities impacted this encounter? (DM, HTN, Smoking, COPD, CAD, Cancer, CVA, ARF, Chemo, Hep., AIDS, mental health diagnosis, sleep apnea, morbid obesity)? @ -None Was patient admitted / discharged? Hospital course, mention meds given and route, prescriptions, significant lab abnormalities, going to OR and other pertinent info. @ -Discharge patient presented for lumbar strain x-rays were obtained given patient's age and clinical symptoms. X-rays were negative patient agrees to plan with pain management, heat, ice and close follow-up. Undiagnosed new problem with uncertain prognosis? @ -No Drug Therapy requiring intensive monitoring for toxicity (Heparin, Nitro, Insulin, Cardizem)? @ -No Were any procedures done? @ -No Diagnosis/symptom? @ -[Lumbar strain Acute, or Chronic, or Acute on Chronic? @ -[Acute Uncomplicated (without systemic symptoms) or Complicated (systemic symptoms)? @ -Uncomplicated Side effects of treatment? @ -No Exacerbation, Progression, or Severe Exacerbation? @ -No Poses a threat to life or bodily function? How? (Chest pain, USA, NM, pneumonia, PE, COPD, DKA, ARF, appy, cholecystitis, CVA, Diverticulitis, Homicidal, Suicidal, threat to staff... and all critical care pts) @ -No - Lab Data Lab Results 04/25/23 Range/Units 12:19 Urine Color Colorless Urine Appearance Clear (Clear) Urine pH 6.0 (5.0-8.0) Ur Specific [place] 1.012 (1.001-1.035) Urine Protein Negative (Negative) Urine Glucose (UA) Negative (Negative) Urine Ketones Negative (Negative) Urine Blood Negative (Negative) Urine Nitrite Negative (Negative) Urine Bilirubin Negative (Negative) Urine Urobilinogen <2.0 (<2.0) mg/dL Ur Leukocyte Esterase Trace H (Negative) Urine RBC 1 (0-5) /hpf Urine WBC 1 (0-5) /hpf Ur Squamous Epith Cells 2 (0-4) /hpf Urine Mucus Rare H (None) /hpf Disposition Clinical Impression: Lumbar strain Disposition: HOME SELF-CARE Condition: Stable Instructions (If sedation given, give patient instructions): Acute Low Back Pain (ED) Additional Instructions: Please return to the Emergency Department if symptoms worsen or any other concerns. Prescriptions: methocarbamoL [Robaxin] 500 mg PO TID #15 tab Is patient prescribed a controlled substance at d/c from ED?: No Referrals: Sedrick Montero MD [Primary Care Provider] - 1-2 days Time of Disposition: 12:57
[2023-04-25 12:15] VITALS: RESP 18; TEMP 97.6
[2023-04-25 12:30] LABS: Appearance,Urine Clear (Clear); Bilirubin,Urine Negative (Negative); Blood,Urine Negative (Negative); Color,Urine Colorless; Glucose,Urine (UA) Negative (Negative); Ketones,Urine Negative (Negative); Leukocyte Esterase,Urine Trace (Negative); Mucus,Urine Rare /hpf; Nitrite,Urine Negative (Negative); Protein,Urine Negative (Negative); RBC,Urine 1 /hpf (0-5); Specific Gravity,Urine 1.012 (1.001-1.035); Squamous Epithelial Cell,Urine 2 /hpf (0-4); Urobilinogen,Urine <2.0 mg/dL (<2.0); WBC,Urine 1 /hpf (0-5)
--- NOTE | 2023-04-25 12:42 | XR ---
EXAMINATION TYPE: XR lumbosacral spine min 4V DATE OF EXAM: 04/25/2023 12:36 PM CLINICAL INDICATION:Female, 77 years old with history of pain; COMPARISON: None TECHNIQUE: XR lumbosacral spine min 4V - Frontal, lateral , bilateral oblique and coned in L5-S1 late ral views of the spine. FINDINGS: No evidence of any acute osseous pathology. No evidence of loss of vertebral body height i s seen. There is scoliosis alignment of the lumbar vertebral bodies. Scattered disc space narrowing. Multilevel marginal osteophyte formation throughout the visualized spine. There is facet joint arthro hannah throughout the spine. Scattered at least mild neural foraminal stenosis. No from stenosis worse at L5-S1 with mild to moderate. Disc was arterial vasculature. Surgical suture/clips noted in the pe lvis. IMPRESSION: 1. No acute fracture. 2. Moderate multilevel disc degeneration with scoliosis.
[2023-04-25] MEDS ORDERED: KETOROLAC 15 MG/ML 1 ML VIAL IM STA (12:46)
[2023-04-25] MEDS ORDERED: ACET/COD 300 MG/30 MG STARTER PACK 6 TAB BTL PO STA (12:56)
[2023-04-25] MEDS ORDERED: HYDROcodone/APAP 5-325MG 1 EACH TAB PO STA (12:56)
[2023-04-25 13:49] VITALS: BP 121/59; PULSE 63
== END 2023-04-25 13:40 | disposition home or self-care (01) ==
LOC: EC 10:33
DX: S39.012A Strain of muscle, fascia and tendon of lower back, initial encounter (principal); E78.5 Hyperlipidemia, unspecified; I25.10 Atherosclerotic heart disease of native coronary artery without angina pectoris; I48.91 Unspecified atrial fibrillation; I10 Essential (primary) hypertension; E07.9 Disorder of thyroid, unspecified; Z79.01 Long term (current) use of anticoagulants; Z79.899 Other long term (current) drug therapy; Z79.890 Hormone replacement therapy; X58.XXXA Exposure to other specified factors, initial encounter
CPT/HCPCS: 72110; 81001; 99284